=== PATIENT | female | born 1975 | race Caucasian/White ===

== ENCOUNTER → 2021-10-15 | Day surgery (SDC) | payer OTHER ==
[~2021-10-15] VITALS: Ht 160 cm; Wt 92.5 kg
[~2021-10-15] MED LIST: ACETAMINOPHEN500 M1 PO; METFORMIN HCL500 M1 PO; MOTRIN600 MG PO; OXY-IR 5MG5 MG PO; PHENTERMINE H37.5 MG PO; SERTRALINE HCL50 MG PO
== END | disposition home or self-care (01) ==
LOC: FAS 09-17 07:00
DX: D17.1 Benign lipomatous neoplasm of skin and subcutaneous tissue of trunk (principal); E11.9 Type 2 diabetes mellitus without complications; Z72.0 Tobacco use
CPT/HCPCS: 84703; J1885; J2250; J2370; J2405; J2704; J3010; J7120